=== PATIENT | female | born 1990 | race Caucasian/White ===

== ENCOUNTER → 2018-03-01 | Outpatient (CLI) | payer OTHER ==
[~2018-03-01] MED LIST: IBUP800 PO; Labetalol HCl300 MG PO; PRENATAL TABLE1 EAC1 PO; Verotin-Gr Cap1 EACH PO
== END ==
LOC: LAB EV 12:43 → LAB SHORT 12:43
DX: L05.91 Pilonidal cyst without abscess (principal)
CPT/HCPCS: 87070; 87205

== ENCOUNTER 2018-12-31 19:52 | Emergency (ER) | payer OTHER ==
[~2018-12-31] VITALS: Ht 162.6 cm; Wt 99.8 kg
[2018-12-31] MEDS ORDERED: DOXY100 PO (20:28)
== END 2018-12-31 23:28 | disposition left against medical advice (07) ==
LOC: ER 19:52
DX: Z53.21 Procedure and treatment not carried out due to patient leaving prior to being seen by health care provider (principal)

== ENCOUNTER → 2019-01-02 | Outpatient (CLI) | payer OTHER ==
[~2019-01-02] MED LIST changes: +DOXY100 PO
== END | disposition home or self-care (01) ==
LOC: LAB EV 13:18 → LAB SHORT 13:18
DX: L05.01 Pilonidal cyst with abscess (principal)
CPT/HCPCS: 87070; 87075; 87205

== ENCOUNTER → 2019-10-21 | Outpatient (CLI) | payer OTHER | END | disposition home or self-care (01) | LOC: LAB SHORT 16:20 → LAB EV 16:20 | DX: R50.9 Fever, unspecified (principal) | CPT/HCPCS: 87081 ==

== ENCOUNTER 2020-01-25 19:53 | Emergency (ER) | payer OTHER ==
[~2020-01-25] VITALS: Ht 162.6 cm; Wt 99.8 kg
[2020-01-25 20:21] LABS: Source, Urine Clean Catch
[2020-01-25 20:25] LABS: BASOPHILS ABSOLUTE AUTO 0.05 K/mm3 (0.00-0.23); BASOPHILS PERCENT AUTO 0 % (0-2); EOSINOPHILS ABSOLUTE AUTO 0.24 K/mm3 (0.00-0.68); EOSINOPHILS PERCENT AUTO 2 % (0-6); Hematocrit 43.9 % (33.0-51.0); Hemoglobin 14.4 g/dL (11.5-16.0); IMMATURE GRAN ABSOLUTE AUTO 0.02 K/mm3 (0.00-0.10); IMMATURE GRAN PERCENT AUTO 0 % (0-1); LYMPHOCYTES ABSOLUTE AUTO 2.24 K/mm3 (0.84-5.20); LYMPHOCYTES PERCENT AUTO 18 % (21-46); MONOCYTES ABSOLUTE AUTO 0.62 K/mm3 (0.16-1.47); MONOCYTES PERCENT AUTO 5 % (4-13); Mean Corpuscular HGB 30.3 pg (26.0-34.0); Mean Corpuscular HGB Conc 32.8 g/dL (31.5-36.5); Mean Corpuscular Volume 92 fL (80-100); Mean Platelet Volume 10.4 fL (9.1-12.4); NEUTROPHILS ABSOLUTE AUTO 9.08 K/mm3 (1.96-9.15); NEUTROPHILS PERCENT AUTO 74 % (41-73); Platelet Count 302 K/mm3 (150-400); RDW Coefficient Variation 12.2 % (11.7-14.2); RDW Standard Deviation 42.5 fL (35.1-46.3); Red Blood Cell Count 4.75 M/mm3 (3.80-5.20); White Blood Cell Count 12.25 K/mm3 (4.00-11.30)
[2020-01-25 20:40] LABS: Bilirubin, Urine Neg (Neg); Blood, Urine Neg (Neg); Glucose Qualitative, Urine Neg (Neg); Ketones, Urine Neg (Neg); Leukocyte Esterase, Urine 1+ (Neg); Nitrite, Urine Neg (Neg); Protein, Urine Neg (Neg); Specific Gravity, Urine 1.015 (1.003-1.022); Urobilinogen, Urine NORM (Normal)
[2020-01-25 20:44] LABS: Alanine Aminotransfer (ALT/SGP 18 U/L (12-78); Alk Phos 66 U/L (50-136); Anion Gap 3 mmol/L (6-16); Aspartate Aminotrans (AST/SGOT 15 U/L (12-37); Bilirubin, Total 0.1 mg/dL (0.1-1.0); Blood Urea Nitrogen 13 mg/dL (8-24); Bun/Creatinine Ratio 23.4 (12.0-20.0); CO2, Blood 26 mmol/L (21-32); Calcium, Blood 8.5 mg/dL (8.5-10.1); Chloride, Blood 110 mmol/L (98-108); Creatinine, Blood 0.56 mg/dL (0.40-1.00); Globulin, Blood 4.1 g/dL (2.2-4.0); Glomerular Filtration Rate >60 (60-); Glucose, Blood 91 mg/dL (70-99); Potassium, Blood 3.4 mmol/L (3.5-5.5); Sodium, Blood 139 mmol/L (136-145); Total Protein, Blood 8.1 g/dL (6.4-8.2)
[2020-01-25 20:44] LABS: Appearance, Urine Hazy (Clear); Color, Urine Yellow (P-Yellow)
[2020-01-25 20:46] LABS: Amorphous Light (0-Heavy); Bacteria Mod /hpf; Red Blood Cells, Urine Not Seen /hpf (0-2); Squamous Epithelial Cells Mod /hpf (Few)
[2020-01-25] MEDS ORDERED: Norco 5-325 Ta1 EACH PO (23:08)
== END 2020-01-25 23:15 | disposition home or self-care (01) ==
LOC: ER 19:53
PROVIDERS: Physician Assistant
DX: N83.201 Unspecified ovarian cyst, right side (principal); D72.829 Elevated white blood cell count, unspecified; F17.200 Nicotine dependence, unspecified, uncomplicated; Z88.0 Allergy status to penicillin
CPT/HCPCS: 36415; 74177; 80053; 81001; 81025; 83690; 85025; 87086; 96361; 96374; 99284-25; J1885; J7120; Q9967